=== PATIENT | female | born 1990 | race Caucasian/White ===

== ENCOUNTER 2023-05-20 09:34 | Inpatient (IN) ==
[2023-05-20] MEDS ORDERED: Lidocaine 1% VIAL 10 MG/ML 30 ML VIAL INJ PRN (10:33)
[2023-05-20] MEDS ORDERED: Prochlorperazine 5 mg/ml 2 ml VIAL (10 mg) IV PRN (10:33)
[2023-05-20] MEDS ORDERED: Nalbuphine 10 MG/ML 1 ML VIAL IV PRN (10:33)
[2023-05-20] MEDS: Lactated Ringers 1000 ml BAG 1,000 ML IV ONE ×2 (11:20→17:58)
[2023-05-20 11:32] LABS: ABS Basophils 0.1 10^3/uL (0.0-0.1); ABS Lymphocytes 1.5 10^3/uL (1.0-4.8); ABS Monocytes 0.9 10^3/uL (0.0-0.9); ABS Neutrophils 13.2 10^3/uL (1.5-7.6); ABS Nucleated RBC 0.01 10^3/ul; Eosinophil % 0.2 %; Hematocrit 35.4 % (35-45); Hemoglobin 11.6 g/dL (11.5-14.3); Lymphocyte % 9.5 %; Mean Corpuscular Hemoglobin 29.2 pg (27-33); Mean Corpuscular Hgb Conc 32.7 g/dL (31-36); Mean Corpuscular Volume 89.4 fL (80-97); Mean Platelet Volume 9.7 fL (7.5-11.2); Nucleated Red Blood Cells % 0.1 %/100WBC (0.0-0.8); Platelet Count 212 10^3/uL (150-450); Red Blood Count 3.96 10^6/uL (3.63-4.92); White Blood Count 15.6 10^3/uL (3.8-11.8)
[2023-05-20] MEDS: fentaNYL 100 mcg/2 ml 50 MCG/ML VIAL ONE ×2 (11:45→17:58)
[2023-05-20] MEDS: Buffered Lidocaine 1% SYRIN 1 ml INTRADERM ONE (11:49)
[2023-05-20] MEDS: Lidocaine 1.5% EPI 1:200,000 30 ML SDV ONE ×2 (11:52→17:58)
[2023-05-20] MEDS: Lactated Ringers 1000 ml BAG 1,000 ML IV SCH ×2 (12:03→17:58)
[2023-05-20] MEDS ORDERED: Phenylephrine 40 mcg/mL 10mL (400mcg) SYRINGE IV PUSH PRN ×2 (12:28)
[2023-05-20] MEDS ORDERED: Lactated Ringers 1000 ml BAG 500 ML IV PRN (12:28)
[2023-05-20] MEDS ORDERED: Famotidine IV 10 MG/ML 2 ml VIAL (20 mg) IV PRN (12:28)
[2023-05-20] MEDS: Lactated Ringers 1000 ml BAG 500 ML IV PRN (12:57)
[2023-05-20] MEDS: OBEPIDURAL (200 ML) 200 ML EPIDURAL SCH (12:59)
[2023-05-20 13:50] LABS: Urine Appearance Clear; Urine Bilirubin Negative (Negative); Urine Blood 3+ (Negative); Urine Color Yellow; Urine Glucose Negative (Negative); Urine Ketones 2+ (Negative); Urine Nitrite Negative (Negative); Urine Protein Trace (Negative); Urine Specific Gravity 1.023 (1.002-1.030); Urine Urobilinogen Negative (Negative)
[2023-05-20 14:06] LABS: Urine Bacteria Absent /HPF (Absent); Urine Red Blood Cell 3+(>10/hpf) /HPF (0-Trace); Urine White Blood Cell Trace(0-5/hpf) /HPF (0-Trace)
[2023-05-20 14:07] LABS: Urine Benzodiazepine Screen None Detected (None Detect); Urine Cannabinoids Screen None Detected (None Detect); Urine Opiates Screen None Detected (None Detect)
[2023-05-20] MEDS: Sodium Citrate/Citric Acid LIQ 15 ML UDC PO PRN (15:41)
[2023-05-20] MEDS ORDERED: Morphine PF AMP (0.5MG/ML) 5 MG/10 ML AMP ONE (15:42)
[2023-05-20] MEDS ORDERED: fentaNYL 100 mcg/2 ml 50 MCG/ML VIAL ONE (15:42)
[2023-05-20] MEDS ORDERED: Dibucaine 1% OINT 28.35 GM TUBE PR PRN (17:13)
[2023-05-20] MEDS ORDERED: Witch Hazel PAD JAR TOPICAL PRN (17:13)
[2023-05-20] MEDS ORDERED: Glycerin ADULT 2.4 gm SUPP PR PRN (17:13)
[2023-05-20] MEDS: Oxytocin in LR 20,000 MILLI.UNIT/1,000 ML BAG IV SCH (17:30)
[2023-05-20] MEDS: fentaNYL 100 mcg/2 ml 50 MCG/ML VIAL IV ONE (17:55)
[2023-05-20] MEDS: ceFOXitin 2 GM IVPREMIX 2 GM/50 ML BAG ONE (17:56)
[2023-05-20] MEDS: ceFOXitin 2 GM IVPREMIX 2 GM/50 ML BAG IVPB ONE (17:57)
[2023-05-20] MEDS: Oxytocin in LR 20,000 MILLI.UNIT/1,000 ML BAG IV ONE (17:58)
[2023-05-20] MEDS: Bupivacaine 0.25% SDV PF 10 ML VIAL INJ ONE (17:58)
[2023-05-20] MEDS: OBEPIDURAL (200 ML) 200 ML EPIDURAL ONE (17:59)
[2023-05-20] MEDS ORDERED: Lactated Ringers 1000 ml BAG 1,000 ML IV SCH (18:00)
[2023-05-20] MEDS ORDERED: Naloxone 0.4 mg VIAL 0.4 mg/ml 1 ml VIAL IV PUSH PRN (18:48)
[2023-05-20] MEDS ORDERED: Acetaminophen IV 1 GM/100ML 1,000 MG/100 ML BAG IV PRN (18:48)
[2023-05-20] MEDS ORDERED: Ondansetron 4 mg VIAL 2 MG/ML 2 ml VIAL IV PRN (18:48)
[2023-05-21 07:01] LABS: ABS Lymphocytes 1.3 10^3/uL (1.0-4.8); ABS Neutrophils 13.3 10^3/uL (1.5-7.6); Eosinophil % 0.1 %; Hematocrit 26.5 % (35-45); Hemoglobin 8.9 g/dL (11.5-14.3); Lymphocyte % 8.2 %; Mean Corpuscular Hemoglobin 29.7 pg (27-33); Mean Corpuscular Hgb Conc 33.4 g/dL (31-36); Mean Platelet Volume 9.3 fL (7.5-11.2); Platelet Count 169 10^3/uL (150-450); Red Blood Count 2.98 10^6/uL (3.63-4.92); Red Cell Distribution Width 13.9 % (12-17); White Blood Count 15.6 10^3/uL (3.8-11.8)
[2023-05-21] MEDS: Measles, Mumps,Rubella VACC 0.5 ML/VIAL SUBCUT ONE (15:54)
[2023-05-23 07:52] VITALS: BP 124/69
== END 2023-05-23 18:49 | disposition home or self-care (01) | DRG 788 ==
LOC: MCHOBOUT 09:34 → MCHOB 10:35
PROVIDERS: ADMIT Midwife; ATTEND Obstetrics & Gynecology